=== PATIENT | female | born 1960 | race Caucasian/White ===

== ENCOUNTER 2018-09-11 08:26 | Outpatient (CLI) | payer BC ==
[2018-09-11] MEDS ORDERED: BARIUM SULFATE 135 ML SUSP.RECON (E-Z-HD) PO ONE (08:47)
== END 2018-09-11 20:49 | disposition home or self-care (01) ==
LOC: SRD 08:26
PROVIDERS: ATTEND Otolaryngology Plastic Surgery within the Head & Neck
DX: Q25.46 Tortuous aortic arch (principal)
CPT/HCPCS: 74220-TC